=== PATIENT | female | born 1990 | race Caucasian/White ===

== ENCOUNTER 2016-11-21 16:53 | Emergency (ER) | payer OTHER ==
[~2016-11-21] VITALS: Ht 170.2 cm; Wt 113.5 kg
[~2016-11-21 16:53] MED LIST: AUGMENTIN875 MG PO; BENTYL20 MG PO; CIPRO500 MG PO; COLACE100 MG PO; Cipro PO; FLAGYL500 MG PO; IBUPROFEN600 MG PO; KEFLEX500 MG PO; LASIX20 MG PO; LOPRESSOR25 MG PO; LOPRESSOR50 MG PO; METOPROLOL TART25 MG PO; MOBIC7.5 MG PO; NAPROSYN500 MG PO; NORCO 5/3251 TABLET PO; NUVARING VAGIN1 EACH; NUVARING VAGIN1 EACH VG; ONDANSETRON HCL4 MG; PAROXETINE HCL20 MG PO; PERCOCET 5/31 TABLET PO; PREDNISONE20 MG; SILVER SULFADIA50 GM; ULTRAM50 MG PO; VERAPAMIL HCL120 MG PO; ZOFRAN ODT8 MG PO; ZOFRAN4 MG PO
[2016-11-21 17:41] LABS: HEMATOCRIT 37.9 % (36.0-46.0); MCH 26.9 PG (29.0-34.0); MCHC 31.9 G/DL (30.0-36.0); MCV 84.4 FL (83-99); PLATELET COUNT 386 K/uL (156-360); RBC DIS.WIDTH-SD 40.3 % (39-53); RED BLOOD COUNT 4.49 M/uL (3.80-5.20); WHITE BLOOD COUNT 13.7 K/uL (4.1-10.2)
[2016-11-21 17:49] LABS: CHLORIDE 107 mEq/L (99-109); POTASSIUM 3.8 mEq/L (3.7-5.4); SODIUM 141 mEq/L (136-147)
[2016-11-21 17:50] LABS: GLUCOSE 103 mg/dL (70-99)
[2016-11-21 17:52] LABS: ANION GAP 11 MEQ/L (2-14)
[2016-11-21 17:55] LABS: GFR ESTIMATE (CALCULATED) > 59 mL/min/; UREA NITROGEN (BUN) 15 mg/dL (9-23)
[2016-11-21 18:02] LABS: QUANTITATIVE HCG < 4.0 MIU/ML
[2016-11-21] MEDS ORDERED: DELTASONE20 M1 PO (21:18)
[2016-11-21] MEDS ORDERED: PREDNISONE50 MG PO (21:25)
[2016-11-21 21:47] VITALS: BP 125/62
== END 2016-11-21 21:53 | disposition home or self-care (01) ==
LOC: EME 16:53
PROVIDERS: Physician Assistant
DX: T78.2XXA Anaphylactic shock, unspecified, initial encounter (principal); Z87.442 Personal history of urinary calculi
CPT/HCPCS: 70360; 71010; 80048; 84702; 85027; 99281; 99285; J1200; J2405; J2930; J7030; S0028

== ENCOUNTER 2016-12-20 14:14 | Emergency (ER) | payer OTHER ==
[~2016-12-20] VITALS: Ht 170.2 cm; Wt 110.9 kg
[~2016-12-20 14:14] MED LIST changes: +DELTASONE20 M1 PO; +PREDNISONE50 MG PO
[2016-12-20 16:06] LABS: HEMATOCRIT 40.6 % (36.0-46.0); MCH 26.9 PG (29.0-34.0); MCHC 32.5 G/DL (30.0-36.0); MCV 82.9 FL (83-99); MEAN PLAT.VOLUME 9.9 uM^3 (9.5-12.4); PLATELET COUNT 406 K/uL (156-360); RBC DIS.WIDTH-CV 12.9 % (11.8-14.6); RBC DIS.WIDTH-SD 38.9 % (39-53); WHITE BLOOD COUNT 11.9 K/uL (4.1-10.2)
[2016-12-20 16:12] LABS: CHLORIDE 104 mEq/L (99-109); POTASSIUM 4.1 mEq/L (3.7-5.4); SODIUM 136 mEq/L (136-147)
[2016-12-20 16:14] LABS: GLUCOSE 86 mg/dL (70-99)
[2016-12-20 16:15] LABS: ANION GAP 8 MEQ/L (2-14)
[2016-12-20 16:18] LABS: GFR ESTIMATE (CALCULATED) > 59 mL/min/
[2016-12-20 16:19] LABS: UREA NITROGEN (BUN) 14 mg/dL (9-23)
[2016-12-20 16:25] LABS: TROP-I INTERPRETATION NEGATIVE; TROPONIN-I < 0.01 ng/mL (0.0-0.30)
[2016-12-20 16:58] VITALS: BP 120/83
== END 2016-12-20 17:00 | disposition home or self-care (01) ==
LOC: EME → EDBD 14:14 → EME 14:14
PROVIDERS: Emergency Medicine
DX: R00.2 Palpitations (principal); R51 Headache; H93.19 Tinnitus, unspecified ear; R11.0 Nausea; R03.0 Elevated blood-pressure reading, without diagnosis of hypertension
CPT/HCPCS: 71020; 80048; 84484; 85027; 93005; 99281; 99284; J2405

== ENCOUNTER 2017-02-03 14:04 | Emergency (ER) | payer OTHER ==
[~2017-02-03] VITALS: Ht 170.2 cm; Wt 110.1 kg
[2017-02-03] MEDS ORDERED: PREDNISONE20 MG PO (17:06)
[2017-02-03] MEDS ORDERED: EPIPEN ADU0.3 MG/0.3 IM (17:06)
[2017-02-03 17:18] VITALS: BP 128/68
== END 2017-02-03 17:21 | disposition home or self-care (01) ==
LOC: EME 14:04
DX: T78.2XXA Anaphylactic shock, unspecified, initial encounter (principal); L50.9 Urticaria, unspecified
CPT/HCPCS: 99281; 99284; J7512

== ENCOUNTER 2017-03-24 21:58 | Emergency (ER) | payer OTHER ==
[~2017-03-24] VITALS: Ht 170.2 cm; Wt 109.0 kg
[~2017-03-24 21:58] MED LIST changes: +EPIPEN ADU0.3 MG/0.3 IM; +PREDNISONE20 MG PO
[2017-03-24 22:41] LABS: HEMATOCRIT 38.9 % (36.0-46.0); MCH 27.4 PG (29.0-34.0); MCHC 32.6 G/DL (30.0-36.0); MEAN PLAT.VOLUME 10.3 uM^3 (9.5-12.4); PLATELET COUNT 310 K/uL (156-360); RBC DIS.WIDTH-CV 12.9 % (11.8-14.6); RBC DIS.WIDTH-SD 39.1 % (39-53); RED BLOOD COUNT 4.63 M/uL (3.80-5.20); WHITE BLOOD COUNT 15.9 K/uL (4.1-10.2)
[2017-03-24 22:52] LABS: CHLORIDE 104 mEq/L (99-109); POTASSIUM 4.1 mEq/L (3.7-5.4); SODIUM 139 mEq/L (136-147)
[2017-03-24 22:54] LABS: GLUCOSE 80 mg/dL (70-99)
[2017-03-24 22:55] LABS: ANION GAP 15 MEQ/L (2-14)
[2017-03-24 22:59] LABS: GFR ESTIMATE (CALCULATED) > 59 mL/min/; UREA NITROGEN (BUN) 7 mg/dL (9-23)
[2017-03-24 23:02] LABS: TROP-I INTERPRETATION NEGATIVE; TROPONIN-I < 0.01 ng/mL (0.0-0.30)
[2017-03-25 00:48] LABS: BILIRUBIN NEGATIVE; BLOOD NEGATIVE; COLOR YELLOW ((YELLOW)); GLUCOSE (STRIP) NEGATIVE; KETONES 5; LEUKOCYTES NEGATIVE; NITRITE NEGATIVE; PROTEIN (STRIP) NEGATIVE; SPECIFIC GRAVITY 1.011 (1.000-1.030); UROBILINOGEN 0.2 MG/DL (0.2-1.0)
[2017-03-25 00:53] LABS: ADD MIUA? NO; UCUL ADDED? NO
[2017-03-25] MEDS ORDERED: REGLAN10 MG PO (02:33)
[2017-03-25 02:40] VITALS: BP 110/60
== END 2017-03-25 02:41 | disposition home or self-care (01) ==
LOC: EME 21:58
PROVIDERS: Emergency Medicine
DX: O99.411 Diseases of the circulatory system complicating pregnancy, first trimester (principal); R00.2 Palpitations; O21.9 Vomiting of pregnancy, unspecified; Z3A.08 8 weeks gestation of pregnancy; Z86.79 Personal history of other diseases of the circulatory system; Z87.442 Personal history of urinary calculi
CPT/HCPCS: 80048; 81003; 84484; 84702; 85027; 93005; 99281; 99285; J2765; J7030

== ENCOUNTER 2017-05-25 21:39 | Emergency (ER) | payer OTHER ==
[~2017-05-25] VITALS: Ht 170.2 cm; Wt 105.1 kg
[~2017-05-25 21:39] MED LIST changes: +REGLAN10 MG PO
[2017-05-25 21:50] VITALS: BP 116/86
== END 2017-05-25 23:45 | disposition left against medical advice (07) ==
LOC: EME 21:39
DX: O20.9 Hemorrhage in early pregnancy, unspecified (principal); Z3A.16 16 weeks gestation of pregnancy; Z53.21 Procedure and treatment not carried out due to patient leaving prior to being seen by health care provider
CPT/HCPCS: 81003; 84702; 85027

== ENCOUNTER 2017-06-24 09:09 | Outpatient (CLI) | payer OTHER ==
[2017-06-24 08:55] VITALS: BP 126/58
[2017-06-24 09:57] LABS: POINT-OF-CARE METER ID UU13113747; POINT-OF-CARE USER ID NUTJLF39
[2017-06-24] MEDS ORDERED: EPIPEN ADU0.3 MG/0.3 IM (12:36)
[2017-06-24] MEDS ORDERED: PRENATAL TABLE1 EACH PO (12:37)
== END 2017-06-24 09:39 | disposition home or self-care (01) ==
LOC: LDRP-OP 09:09 → 2WEST 09:10
PROVIDERS: Obstetrics & Gynecology
DX: O99.412 Diseases of the circulatory system complicating pregnancy, second trimester (principal); I47.1 Supraventricular tachycardia; R55 Syncope and collapse; R00.2 Palpitations; Z98.890 Other specified postprocedural states; O26.892 Other specified pregnancy related conditions, second trimester; R10.9 Unspecified abdominal pain; Z82.49 Family history of ischemic heart disease and other diseases of the circulatory system; Z87.442 Personal history of urinary calculi; Z3A.21 21 weeks gestation of pregnancy
CPT/HCPCS: 59025; 82948; G0378

== ENCOUNTER 2017-06-24 09:55 | Observation (INO) | payer OTHER ==
[~2017-06-24] VITALS: Ht 170.2 cm; Wt 109.0 kg
[2017-06-24 10:34] LABS: EOSINOPHIL (%) 0.5 % (0-5); EOSINOPHIL COUNT 0.1 K/uL (0-0.3); HEMATOCRIT 35.2 % (36.0-46.0); IMMATURE GRANULOCYTE (%) 0.8 % (0.0-0.7); IMMATURE GRANULOCYTE COUNT 0.1 K/uL; INSTRUMENT ABS NEUTROPHIL CT 11.2 K/uL; LYMPHOCYTE COUNT 2.4 K/uL (1.0-2.8); MCH 28.3 PG (29.0-34.0); MCHC 32.7 G/DL (30.0-36.0); MCV 86.5 FL (83-99); MEAN PLAT.VOLUME 10.8 uM^3 (9.5-12.4); MONOCYTE (%) 5.9 % (3-12); MONOCYTE COUNT 0.9 K/uL (0-0.8); NEUTROPHIL (%) 76.3 % (45-76); NEUTROPHIL COUNT 11.2 K/uL (1.8-6.4); PLATELET COUNT 287 K/uL (156-360); RBC DIS.WIDTH-CV 13.2 % (11.8-14.6); RED BLOOD COUNT 4.07 M/uL (3.80-5.20); WHITE BLOOD COUNT 14.7 K/uL (4.1-10.2)
[2017-06-24 10:50] LABS: TROP-I INTERPRETATION NEGATIVE; TROPONIN-I < 0.01 ng/mL (0.0-0.30)
[2017-06-24 10:55] LABS: PROTHROMBIN TIME 10.9 SEC (10.2-12.9)
[2017-06-24 10:57] LABS: PTT 26.1 SEC (25-37)
[2017-06-24 11:44] LABS: CHLORIDE 106 mEq/L (99-109); POTASSIUM 3.9 mEq/L (3.7-5.4); SODIUM 136 mEq/L (136-147)
[2017-06-24 11:46] LABS: GLUCOSE 85 mg/dL (70-99)
[2017-06-24 11:47] LABS: ANION GAP 11 MEQ/L (2-14)
[2017-06-24 11:50] LABS: GFR ESTIMATE (CALCULATED) > 59 mL/min/
[2017-06-24 11:51] LABS: UREA NITROGEN (BUN) 6 mg/dL (9-23)
[2017-06-24] MEDS ORDERED: EPIPEN ADU0.3 MG/0.3 IM (12:36)
[2017-06-24] MEDS ORDERED: PRENATAL TABLE1 EACH PO (12:37)
[2017-06-24 13:53] VITALS: BP 107/56
[2017-06-24 15:33] VITALS: BP 114/57
[2017-06-24 15:46] VITALS: BP 106/60
[2017-06-24 16:28] LABS: ADD MIUA? NO; BILIRUBIN NEGATIVE; BLOOD NEGATIVE; COLOR STRAW ((YELLOW)); GLUCOSE (STRIP) NEGATIVE; KETONES NEGATIVE; LEUKOCYTES NEGATIVE; NITRITE NEGATIVE; PROTEIN (STRIP) NEGATIVE; SPECIFIC GRAVITY 1.011 (1.000-1.030); UROBILINOGEN 0.2 MG/DL (0.2-1.0)
[2017-06-24 16:42] LABS: AMPHETAMINE NEGATIVE (500 ng/mL); BARBITURATES NEGATIVE (200 ng/mL); BENZODIAZEPINES NEGATIVE (150 ng/mL); COCAINE NEGATIVE (150 ng/mL); INTERNAL CONTROLS VALID? YES; METHADONE NEGATIVE (200 ng/mL); METHAMPHETAMINE NEGATIVE (500 ng/mL); OPIATES (MORPHINE) NEGATIVE (100 ng/mL); OXYCODONE NEGATIVE (100 ng/mL); PHENCYCLIDINE NEGATIVE (25 ng/mL); PROPOXYPHENE NEGATIVE (300 ng/mL); THC CANNABINOIDS NEGATIVE (50 ng/mL); TRICYCLIC ANTIDEPRESSANTS NEGATIVE (300 ng/mL)
[2017-06-24 19:20] VITALS: BP 110/60
[2017-06-24 23:13] VITALS: BP 110/53
[2017-06-25 03:23] VITALS: BP 101/56
[2017-06-25 07:15] VITALS: BP 108/53
== END 2017-06-25 12:00 | disposition home or self-care (01) ==
LOC: EME 09:55 → EDOF 13:25 → 2EASTP 13:25 → 2WEST 13:25 → ENRESERV 15:56 → 2WEST 18:38 → 2EASTP 19:04
PROVIDERS: Emergency Medicine; Obstetrics & Gynecology
DX: O99.412 Diseases of the circulatory system complicating pregnancy, second trimester (principal); I47.1 Supraventricular tachycardia; R55 Syncope and collapse; R00.2 Palpitations; Z98.890 Other specified postprocedural states; O26.892 Other specified pregnancy related conditions, second trimester; R10.9 Unspecified abdominal pain; Z82.49 Family history of ischemic heart disease and other diseases of the circulatory system; Z87.442 Personal history of urinary calculi; Z3A.21 21 weeks gestation of pregnancy
CPT/HCPCS: 76805; 80048; 81003; 84484; 85025; 85610; 85730; 87086; 93005; 99281; 99285; G0378; J2405; J7030

== ENCOUNTER 2017-08-03 10:10 | Outpatient (CLI) | payer OTHER ==
[~2017-08-03 10:10] MED LIST changes: +PRENATAL TABLE1 EACH PO
[2017-08-03 10:27] VITALS: BP 128/65
[2017-08-03 19:03] VITALS: BP 97/48
== END 2017-08-03 19:50 | disposition home or self-care (01) ==
LOC: LDRP-OP 10:10 → 2WEST 10:11 → LDRP-OP 12-07 01:51
DX: O9A.212 Injury, poisoning and certain other consequences of external causes complicating pregnancy, second trimester (principal); Z3A.26 26 weeks gestation of pregnancy; O32.1XX0 Maternal care for breech presentation, not applicable or unspecified; W19.XXXA Unspecified fall, initial encounter
CPT/HCPCS: 59025; 76805; 85460; G0378

== ENCOUNTER 2017-08-03 12:15 | Emergency (ER) | payer OTHER ==
[~2017-08-03] VITALS: Ht 170.2 cm; Wt 114.0 kg
[2017-08-03 13:50] LABS: EOSINOPHIL (%) 0.6 % (0-5); EOSINOPHIL COUNT 0.1 K/uL (0-0.3); HEMATOCRIT 32.5 % (36.0-46.0); IMMATURE GRANULOCYTE (%) 0.8 % (0.0-0.7); IMMATURE GRANULOCYTE COUNT 0.1 K/uL; INSTRUMENT ABS NEUTROPHIL CT 11.8 K/uL; LYMPHOCYTE COUNT 2.8 K/uL (1.0-2.8); MCH 27.7 PG (29.0-34.0); MCV 86.4 FL (83-99); NEUTROPHIL (%) 74.6 % (45-76); NEUTROPHIL COUNT 11.8 K/uL (1.8-6.4); PLATELET COUNT 325 K/uL (156-360); RBC DIS.WIDTH-CV 12.6 % (11.8-14.6); RED BLOOD COUNT 3.76 M/uL (3.80-5.20); WHITE BLOOD COUNT 15.8 K/uL (4.1-10.2)
[2017-08-03 14:11] LABS: TROP-I INTERPRETATION NEGATIVE; TROPONIN-I < 0.01 ng/mL (0.0-0.30)
[2017-08-03 14:20] LABS: ANION GAP 7 MEQ/L (2-14); CHLORIDE 103 MEQ/L (99-109); GFR ESTIMATE (CALCULATED) > 59 mL/min/; GLUCOSE 83 mg/dL (70-99); SAMPLE HEMOLYSIS CHECK 0; SAMPLE ICTERIC CHECK 0; SAMPLE LIPEMIA CHECK 0; SODIUM 136 MEQ/L (136-147); UREA NITROGEN (BUN) 8 mg/dL (9-23)
[2017-08-03 15:24] VITALS: BP 108/61
== END 2017-08-03 15:25 | disposition home or self-care (01) ==
LOC: EME 12:15
PROVIDERS: Emergency Medicine
DX: O99.412 Diseases of the circulatory system complicating pregnancy, second trimester (principal); R55 Syncope and collapse; Z3A.26 26 weeks gestation of pregnancy; I49.8 Other specified cardiac arrhythmias; F32.9 Major depressive disorder, single episode, unspecified; F41.9 Anxiety disorder, unspecified; Z87.442 Personal history of urinary calculi
CPT/HCPCS: 80048; 84484; 85025; 93005; 99281; 99285

== ENCOUNTER 2017-09-11 12:13 | Outpatient (CLI) | payer OTHER ==
[~2017-09-11] VITALS: Ht 170.2 cm; Wt 113.6 kg
[2017-09-11 12:35] VITALS: BP 113/77
[2017-09-11 13:16] LABS: BASOPHIL (%) 0.1 % (0-1); EOSINOPHIL (%) 0.3 % (0-5); EOSINOPHIL COUNT 0.1 K/uL (0-0.3); HEMATOCRIT 32.2 % (36.0-46.0); HEMOGLOBIN 10.2 G/DL (11.9-15.5); IMMATURE GRANULOCYTE (%) 0.7 % (0.0-0.7); LYMPHOCYTE (%) 17.6 % (15-42); LYMPHOCYTE COUNT 2.6 K/uL (1.0-2.8); MCH 26.6 PG (29.0-34.0); MCHC 31.7 G/DL (30.0-36.0); MCV 84.1 FL (83-99); MONOCYTE (%) 6.3 % (3-12); MONOCYTE COUNT 0.9 K/uL (0-0.8); NEUTROPHIL COUNT 10.9 K/uL (1.8-6.4); PLATELET COUNT 320 K/uL (156-360); RBC DIS.WIDTH-CV 12.9 % (11.8-14.6); RBC DIS.WIDTH-SD 38.8 % (39-53); RED BLOOD COUNT 3.83 M/uL (3.80-5.20); WHITE BLOOD COUNT 14.5 K/uL (4.1-10.2)
[2017-09-11 13:38] LABS: ALBUMIN 3.2 G/DL (3.2-4.8); CHLORIDE 106 MEQ/L (99-109); POTASSIUM 3.9 MEQ/L (3.7-5.4); SODIUM 136 MEQ/L (136-147); TOTAL BILIRUBIN 0.2 MG/DL (0.0-1.0)
[2017-09-11 13:44] LABS: ALKALINE PHOSPHATASE 89 IU/L (3-129); ALT (GPT) 7 IU/L (3-49); AST (GOT) 11 IU/L (2-34); CREATININE 0.5 MG/DL (0.6-1.3); GFR ESTIMATE (CALCULATED) > 59 mL/min/; GLUCOSE 99 mg/dL (70-99); TOTAL PROTEIN 6.6 G/DL (6.4-8.3); UREA NITROGEN (BUN) 7 mg/dL (9-23)
[2017-09-11 14:59] VITALS: BP 121/58
== END 2017-09-11 16:30 | disposition home or self-care (01) ==
LOC: LDRP-OP 12:13 → 2WEST 12:15 → LDRP-OP 12-07 22:00
PROVIDERS: Obstetrics & Gynecology Gynecology
DX: O99.89 Other specified diseases and conditions complicating pregnancy, childbirth and the puerperium (principal); R55 Syncope and collapse; O99.413 Diseases of the circulatory system complicating pregnancy, third trimester; I47.1 Supraventricular tachycardia; I48.91 Unspecified atrial fibrillation; I49.8 Other specified cardiac arrhythmias; Z98.890 Other specified postprocedural states; Q62.5 Duplication of ureter; Z87.440 Personal history of urinary (tract) infections; O99.343 Other mental disorders complicating pregnancy, third trimester; F90.9 Attention-deficit hyperactivity disorder, unspecified type; F41.9 Anxiety disorder, unspecified; F32.9 Major depressive disorder, single episode, unspecified; O34.211 Maternal care for low transverse scar from previous cesarean delivery; Z3A.32 32 weeks gestation of pregnancy
CPT/HCPCS: 59025; 76818; 80053; 85025; G0378

== ENCOUNTER 2017-10-01 16:17 | Outpatient (CLI) | payer OTHER ==
[~2017-10-01] VITALS: Ht 170.2 cm; Wt 117.9 kg
[2017-10-01 16:33] VITALS: BP 116/78
[2017-10-01 17:32] LABS: APPEARANCE CLOUDY ((CLEAR)); BILIRUBIN NEGATIVE; BLOOD NEGATIVE; COLOR YELLOW ((YELLOW)); GLUCOSE (STRIP) NEGATIVE; KETONES NEGATIVE; LEUKOCYTES NEGATIVE; NITRITE NEGATIVE; PROTEIN (STRIP) NEGATIVE; SPECIFIC GRAVITY 1.012 (1.000-1.030); UROBILINOGEN 0.2 MG/DL (0.2-1.0)
[2017-10-01 17:51] LABS: BASOPHIL (%) 0.2 % (0-1); EOSINOPHIL (%) 0.6 % (0-5); EOSINOPHIL COUNT 0.1 K/uL (0-0.3); HEMATOCRIT 32.7 % (36.0-46.0); HEMOGLOBIN 10.1 G/DL (11.9-15.5); IMMATURE GRANULOCYTE (%) 0.8 % (0.0-0.7); LYMPHOCYTE (%) 20.6 % (15-42); MCHC 30.9 G/DL (30.0-36.0); MCV 80.9 FL (83-99); MONOCYTE (%) 7.5 % (3-12); MONOCYTE COUNT 1.1 K/uL (0-0.8); NEUTROPHIL (%) 70.3 % (45-76); NEUTROPHIL COUNT 10.1 K/uL (1.8-6.4); PLATELET COUNT 336 K/uL (156-360); RBC DIS.WIDTH-CV 13.3 % (11.8-14.6); RBC DIS.WIDTH-SD 39.2 % (39-53); RED BLOOD COUNT 4.04 M/uL (3.80-5.20); WHITE BLOOD COUNT 14.3 K/uL (4.1-10.2)
[2017-10-01 17:53] LABS: BACTERIA 2+ /HPF; EPITHELIAL CELLS 3+ /HPF; MUCUS RARE /LPF; RED BLOOD CELLS 0-5 /HPF (0-5); UCUL ADDED? YES; WHITE BLOOD CELLS 0-5 /HPF (0-5)
[2017-10-01 18:01] VITALS: BP 128/61
[2017-10-01 19:40] VITALS: BP 129/59
[2017-10-01 20:23] LABS: APPEARANCE SL.HAZY ((CLEAR)); BILIRUBIN NEGATIVE; BLOOD NEGATIVE; COLOR YELLOW ((YELLOW)); GLUCOSE (STRIP) NEGATIVE; KETONES NEGATIVE; LEUKOCYTES NEGATIVE; NITRITE NEGATIVE; PROTEIN (STRIP) NEGATIVE; SPECIFIC GRAVITY 1.015 (1.000-1.030); UROBILINOGEN 0.2 MG/DL (0.2-1.0)
== END 2017-10-01 21:35 | disposition home or self-care (01) ==
LOC: LDRP-OP 16:17 → 2WEST 16:18 → LDRP-OP 12-07 20:33
PROVIDERS: Advanced Practice Midwife
DX: O36.8130 Decreased fetal movements, third trimester, not applicable or unspecified (principal); Z3A.34 34 weeks gestation of pregnancy; O40.3XX0 Polyhydramnios, third trimester, not applicable or unspecified; R55 Syncope and collapse; W19.XXXA Unspecified fall, initial encounter
CPT/HCPCS: 59025; 76805; 81003; 85025; 85460; 87086; G0378; J7120; S0028

== ENCOUNTER 2017-10-13 16:53 | Outpatient (CLI) | payer OTHER ==
[~2017-10-13] VITALS: Ht 170.2 cm; Wt 122.0 kg
[2017-10-13 17:11] VITALS: BP 131/78
== END 2017-10-13 18:15 | disposition home or self-care (01) ==
LOC: LDRP-OP 16:53 → 2WEST 16:54 → LDRP-OP 12-07 21:43
DX: O99.413 Diseases of the circulatory system complicating pregnancy, third trimester (principal); I47.1 Supraventricular tachycardia; I49.8 Other specified cardiac arrhythmias; Z98.890 Other specified postprocedural states; O34.211 Maternal care for low transverse scar from previous cesarean delivery; Z3A.36 36 weeks gestation of pregnancy
CPT/HCPCS: 59025; G0378; J0702

== ENCOUNTER 2017-10-14 16:35 | Outpatient (CLI) | payer OTHER ==
[2017-10-14 16:49] VITALS: BP 127/68
== END 2017-10-14 17:33 | disposition home or self-care (01) ==
LOC: LDRP-OP 16:35 → 2WEST 16:37 → LDRP-OP 12-07 19:16
DX: O99.413 Diseases of the circulatory system complicating pregnancy, third trimester (principal); I49.8 Other specified cardiac arrhythmias; R55 Syncope and collapse; Z98.890 Other specified postprocedural states; I47.1 Supraventricular tachycardia; O34.211 Maternal care for low transverse scar from previous cesarean delivery; Z3A.36 36 weeks gestation of pregnancy
CPT/HCPCS: 59025; G0378; J0702

== ENCOUNTER 2017-10-16 17:29 | Inpatient (IN) | payer OTHER ==
[~2017-10-16] VITALS: Ht 170.2 cm; Wt 122.0 kg
[2017-10-16 17:52] VITALS: BP 136/62
[2017-10-16 18:39] LABS: BASOPHIL (%) 0.2 % (0-1); EOSINOPHIL (%) 0.3 % (0-5); EOSINOPHIL COUNT 0.1 K/uL (0-0.3); HEMATOCRIT 33.6 % (36.0-46.0); HEMOGLOBIN 10.5 G/DL (11.9-15.5); LYMPHOCYTE (%) 20.7 % (15-42); LYMPHOCYTE COUNT 3.6 K/uL (1.0-2.8); MCH 25.7 PG (29.0-34.0); MCHC 31.3 G/DL (30.0-36.0); MCV 82.2 FL (83-99); MONOCYTE (%) 9.7 % (3-12); MONOCYTE COUNT 1.7 K/uL (0-0.8); NEUTROPHIL (%) 68.1 % (45-76); NEUTROPHIL COUNT 11.7 K/uL (1.8-6.4); PLATELET COUNT 358 K/uL (156-360); RBC DIS.WIDTH-CV 14.8 % (11.8-14.6); RED BLOOD COUNT 4.09 M/uL (3.80-5.20); WHITE BLOOD COUNT 17.2 K/uL (4.1-10.2)
[2017-10-16 19:50] VITALS: BP 135/62
[2017-10-17] VITALS (9 sets, daily range): BP systolic 115–132; BP diastolic 59–73
[2017-10-17 06:47] LABS: BASOPHIL (%) 0.2 % (0-1); EOSINOPHIL (%) 0 % (0-5); HEMATOCRIT 31.9 % (36.0-46.0); HEMOGLOBIN 9.7 G/DL (11.9-15.5); IMMATURE GRANULOCYTE (%) 0.7 % (0.0-0.7); LYMPHOCYTE (%) 10.7 % (15-42); LYMPHOCYTE COUNT 2.6 K/uL (1.0-2.8); MCH 25.2 PG (29.0-34.0); MCHC 30.4 G/DL (30.0-36.0); MCV 82.9 FL (83-99); MONOCYTE (%) 7.9 % (3-12); MONOCYTE COUNT 1.9 K/uL (0-0.8); NEUTROPHIL (%) 80.5 % (45-76); NEUTROPHIL COUNT 19.4 K/uL (1.8-6.4); PLATELET COUNT 351 K/uL (156-360); RBC DIS.WIDTH-CV 14.8 % (11.8-14.6); RBC DIS.WIDTH-SD 43.5 % (39-53); RED BLOOD COUNT 3.85 M/uL (3.80-5.20); WHITE BLOOD COUNT 24.1 K/uL (4.1-10.2)
[2017-10-17] MEDS ORDERED: ENDOCET 5-3251 EACH PO (06:50)
[2017-10-17] MEDS ORDERED: IBUPROFEN800 MG PO (06:50)
[2017-10-18 07:20] VITALS: BP 116/56
[2017-10-18 11:30] VITALS: BP 127/58
[2017-10-18 14:05] VITALS: BP 119/67
[2017-10-18 20:24] VITALS: BP 124/61
[2017-10-18 23:01] VITALS: BP 122/64
[2017-10-19 07:22] VITALS: BP 123/63
[2017-10-19 15:27] VITALS: BP 126/72
[2017-10-20 07:37] VITALS: BP 117/55
[2017-10-20] MEDS ORDERED: BISAC-EVAC10 MG PR (11:07)
[2017-10-20] MEDS ORDERED: FUROSEMIDE20 MG PO (11:07)
[2017-10-20 11:45] LABS: ALBUMIN 2.9 G/DL (3.2-4.8); CHLORIDE 101 MEQ/L (99-109); POTASSIUM 4.4 MEQ/L (3.7-5.4); SODIUM 138 MEQ/L (136-147); TOTAL BILIRUBIN 0.2 MG/DL (0.0-1.0)
[2017-10-20 11:51] LABS: ALKALINE PHOSPHATASE 75 IU/L (3-129); ALT (GPT) 19 IU/L (3-49); AST (GOT) 28 IU/L (2-34); CREATININE 0.6 MG/DL (0.6-1.3); GFR ESTIMATE (CALCULATED) > 59 mL/min/; GLUCOSE 69 mg/dL (70-99); TOTAL PROTEIN 5.9 G/DL (6.4-8.3); UREA NITROGEN (BUN) 9 mg/dL (9-23)
[2017-10-20 16:38] VITALS: BP 123/58
== END 2017-10-20 18:30 | disposition home or self-care (01) | DRG 765 ==
LOC: LDRP-OP 17:29 → 2WEST 17:30 → LDRP-OP 12-07 22:31
PROVIDERS: Obstetrics & Gynecology Gynecology; Obstetrics & Gynecology Obstetrics
DX: O40.3XX0 Polyhydramnios, third trimester, not applicable or unspecified (principal); O34.211 Maternal care for low transverse scar from previous cesarean delivery; O60.14X0 Preterm labor third trimester with preterm delivery third trimester, not applicable or unspecified; O99.344 Other mental disorders complicating childbirth; O69.81X0 Labor and delivery complicated by cord around neck, without compression, not applicable or unspecified; F32.9 Major depressive disorder, single episode, unspecified; F41.9 Anxiety disorder, unspecified; O99.02 Anemia complicating childbirth; O99.214 Obesity complicating childbirth; E66.9 Obesity, unspecified; N85.8 Other specified noninflammatory disorders of uterus; Z68.37 Body mass index [BMI] 37.0-37.9, adult; O12.04 Gestational edema, complicating childbirth; Z3A.36 36 weeks gestation of pregnancy; Z37.0 Single live birth; I47.1 Supraventricular tachycardia; F90.9 Attention-deficit hyperactivity disorder, unspecified type; I49.8 Other specified cardiac arrhythmias; K66.0 Peritoneal adhesions (postprocedural) (postinfection); O99.42 Diseases of the circulatory system complicating childbirth; Z30.2 Encounter for sterilization
CPT/HCPCS: 59025; 80053; 85025; 85025 91; 86850; 86900; 86901; 86920; 88302; 88307; 93306; G0378; J0690; J0702; J1100; J1200; J2270; J2274; J2400; J2405; J2590; J3010; J7120